=== PATIENT | male | born 1995 | race Two or more races ===

== ENCOUNTER 2017-05-27 17:12 | Emergency (ER) | payer OTHER ==
[2017-05-27 17:18] VITALS: BP 153/77
--- NOTE | 2017-05-27 17:56 | ER Document Report ---
HPI - HPI Onset: Yesterday Onset/Duration: Sudden Quality of pain: Achy Pain Level: 1 Context: Patient states that he was working on a vehicle yesterday and his hand slipped sliding on a piece of rough metal. Patient complains of laceration to right second finger. Area has become mildly swollen and tenderness has increased. Patient denies any fever. Associated Symptoms: Other - Right second finger tenderness and swelling, with laceration. 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 IN LAST 30 DAYS: No - HEENT HEENT: Atraumatic, Normocephalic - NECK Neck: Normal Inspection - RESPIRATORY Respiratory: No Respiratory Distress O2 Sat by Pulse Oximetry: 99 - CARDIOVASCULAR Pulses: Normal: Radial - MUSCULOSKELETAL/EXTREMETIES Musculoskeletal/Extremeties: MAEW, FROM, Tender, Edema - 1+ edema to right second finger - NEURO Level of Consciousness: Awake, Alert, Appropriate Motor/Sensory: No Motor Deficit, No Sensory Deficit - DERM Integumentary: Warm, Laceration - Patient with flap type laceration to dorsal aspect of right second finger overlying proximal phalanx, area with mild surrounding erythema concerning for developing cellulitis, no tendon deficit Course - Re-evaluation Re-evalutation: 05/27/17 18:11 Finger without any metallic foreign body. No concern for open fracture. Will treat for developing cellulitis. Good return precautions given to patient. 05/27/17 18:15 The patient has been informed that they may have pre-hypertension or hypertension based on a blood pressure reading in the emergency department. I recommend that patient call the primary care provider listed on their discharge instructions or a physician of their choice by this week to arrange follow-up for further evaluation of possible pre-hypertension or hypertension. - Vital Signs Vital signs: Temp Pulse Resp BP Pulse Ox 98.1 F 83 16 153/77 H 99 05/27/17 17:17 05/27/17 17:17 05/27/17 17:17 05/27/17 17:17 05/27/17 17:17 - Diagnostic Test Radiology reviewed: Pending, Image reviewed Discharge - Discharge Clinical Impression: Elevated blood pressure reading Finger laceration Qualifiers: Encounter type: initial encounter Finger: index finger Damage to nail status: without damage Foreign body presence: without foreign body Laterality: right Qualified Code(s): S61.210A - Laceration without foreign body of right index finger without damage to nail, initial encounter Cellulitis Qualifiers: Site of cellulitis: extremity Site of cellulitis of extremity: finger Laterality: right Qualified Code(s): L03.011 - Cellulitis of right finger Condition: Stable Disposition: HOME, SELF-CARE Instructions: Antibiotic Ointment Protection ([facility]), Cellulitis ([facility]), Cephalexin ([facility]), Soap Cleansing ([facility]) Additional Instructions: Return immediately for any new or worsening symptoms Followup with your primary care provider, call tomorrow to make a followup appointment Keep wound clean and covered. Return for any increased redness or swelling Follow-up with hand specialist for any continued problems Prescriptions: Cephalexin Monohydrate [Keflex 500 mg Capsule] 500 mg PO Q6H 7 Days capsule Naproxen [Naprosyn 250 Nmg Tablet] 1 tab PO BID #14 tablet Forms: Elevated Blood Pressure, Return to Work Referrals: TANIKA CHOU DO [ACTIVE STAFF] - Follow up as needed
[2017-05-27] MEDS ORDERED: CEPHALEXIN 500 MG CAPSULE PO ONE (18:11)
--- NOTE | 2017-05-27 18:22 | RADIOLOGY REPORT (SQ) ---
EXAM DESCRIPTION: FINGER RIGHT COMPLETED DATE/TIME: 05/27/2017 6:10 pm REASON FOR STUDY: finger injury, r 2nd COMPARISON: None. NUMBER OF VIEWS: Three views. TECHNIQUE: AP, lateral, and oblique images acquired of the right second finger. LIMITATIONS: None. FINDINGS: MINERALIZATION: Normal. BONES: No acute fracture or dislocation. No worrisome bone lesions. SOFT TISSUES: No soft tissue swelling. No foreign body. OTHER: No other significant finding. IMPRESSION: NO RADIOGRAPHIC EVIDENCE OF ACUTE INJURY. COMMENT: SITE OF TRAUMA/COMPLAINT MARKED/STAMP COMPLETED: Yes TECHNICAL DOCUMENTATION: JOB ID: [id number] [employer]- All Rights Reserved
== END 2017-05-27 18:30 | disposition home or self-care (01) ==
LOC: ER 17:12
DX: S61.210A Laceration without foreign body of right index finger without damage to nail, initial encounter (principal); L03.011 Cellulitis of right finger; W45.8XXA Other foreign body or object entering through skin, initial encounter; Y93.89 Activity, other specified; Y99.0 Civilian activity done for income or pay; R03.0 Elevated blood-pressure reading, without diagnosis of hypertension
CPT/HCPCS: 99283